=== PATIENT | female | born 1960 | race Caucasian/White ===

== ENCOUNTER 2017-11-11 12:48 | Observation (INO) ==
[2017-11-11] MEDS ORDERED: Ondansetron 4 MG/2 ML VIAL IVP ONE ×2 (13:27→15:50)
[2017-11-11] MEDS ORDERED: Ipratropium/Albuterol Neb 3 ML IH ONE (13:27)
[2017-11-11] MEDS ORDERED: Levofloxacin 500 MG/100 ML 500 MG/100 ML BAG IVPB ONE (13:27)
[2017-11-11] MEDS ORDERED: methylPREDNISolone 125 MG/2 ML VIAL IVP ONE (13:27)
--- NOTE | 2017-11-11 13:29 | Emergency Department Note ---
Disposition Clinical Impression: COPD exacerbation Disposition: Admitted As Inpatient Condition: Fair Referrals: Amy Haskins [employer] STOCK CLERK [Primary Care Provider] - Forms: ED Satisfaction Letter Time of Disposition: 14:40 (obsv yuriy obsv) SOB HPI - General Chief Complaint: ED Shortness of Breath/Dyspnea Stated Complaint: DAVID and headache Time Seen by Provider: 11/11/17 12:51 Source: patient Mode of arrival: ambulatory Limitations: no limitations Nursing Notes Reviewed: Yes Vital Signs Reviewed: Yes - History of Present Illness 57-year-old female who looks much older than her stated age who EMS was dispatched out to the house for dyspnea refused transport by EMS has been but brought in by private auto patient markedly dyspneic unable to ambulate more than 2-3 feet while on oxygen without having to stop and catch her breath patient normally on 2 L to 3 L of nasal cannula oxygen was increased to 4 L patient admits to cough congestion sputum production states not eating as well because she so short of breath Pt Subjective Complaint: shortness of breath Onset (ago): day(s) Context: other (Prior history) Severity: moderate Consistency/Duration: gradually worsening Improves with: oxygen, bronchodilators Worsens with: exertion Known history of: COPD Associated symptoms: Reports: cough, wheezing, sputum production. Denies: chest pain, pain with inspiration, fever, orthopnea, lower extremity pain, polyuria, polydipsia, parasthesias, palpitations, hemoptysis, diaphoresis, nausea/vomiting, syncope, abdominal pain, rash, sense of impending doom Treatment prior to arrival: oxygen, bronchodilator Cough present: Yes Cough Description: Involuntary, Weak, Bronchospastic Cough Frequency: Intermittent Sputum production: Yes Sputum Amount: Small Sputum Color: Cream - Related Data Home Medications Medication Instructions Recorded Confirmed Albuterol Sulfate [Albuterol 1 puff IH Q4HR PRN 10/11/15 11/11/17 Inhaler] Tiotropium [Spiriva] 18 mcg IH DAILY 10/11/15 11/11/17 Carisoprodol [Soma] 350 mg PO 1-2XD PRN 10/18/15 11/11/17 Meloxicam [Mobic] 15 mg PO DAILY PRN 10/18/15 11/11/17 Montelukast [Singulair] 10 mg PO DAILY 10/18/15 11/11/17 traZODone [TraZODone] 50 mg PO HS PRN 10/18/15 11/11/17 Budesonide Neb [Pulmicort Neb] 2 ml IH Q4H 11/29/16 11/11/17 Fluticasone Propionate [Flovent 220 mcg IH DAILY 11/29/16 11/11/17 Hfa] Lactose-Reduced Food [Boost] 237 ml PO TID 11/29/16 11/11/17 Previous Rx's Medication Instructions Recorded Albuterol Neb [Proventil Neb] 3 ml IH Q4HR #0 10/26/15 ALPRAZolam [Xanax 1 MG Tablet] 1 mg PO QID #20 10/02/16 Omeprazole 20 mg PO DAILY #30 tablet. 10/02/16 Benzonatate [Tessalon] 100 mg PO TID PRN #30 capsule 12/04/16 HYDROcodone/Acet 5/325 mg [[place] 1 tab PO Q4HR PRN #20 tablet 12/04/16 5-325 mg] Oxygen 4 l NS CONT #0 12/04/16 Guaifenesin/Dm/Pseudoephedrine 1 each PO BID #20 tablet 07/24/17 [Capmist Dm Tablet] Ondansetron HCl [Zofran] 4 mg PO TID #15 tablet 07/24/17 levoFLOXacin [Levaquin] 500 mg PO DAILY #10 tablet 07/24/17 Allergies Allergy/AdvReac Type Severity Reaction Status Date / Time ketorolac [From Toradol] Allergy Hallucinati Verified 11/11/17 12:49 ng ibuprofen AdvReac Gastrointestinal Verified 11/11/17 12:49 Upset naproxen AdvReac Nausea Verified 11/11/17 12:49 All systems ED: reviewed and negative except as stated. Review of Systems: As Per HPI Constitutional: Reports: weakness. Denies: fever, chills Eyes: Denies: eye pain, eye discharge ENT ED: Reports: congestion. Denies: ear pain, throat pain, dental pain Cardiovascular: Reports: dyspnea on exertion. Denies: chest pain, palpitations Respiratory: Reports: cough, dyspnea, wheezes, sputum production Gastrointestinal: Denies: abdominal pain, nausea, vomiting Genitourinary: Denies: urgency, dysuria, frequency Musculoskeletal: Denies: back pain, neck pain, joint swelling Integumentary: Denies: rash, abrasion Neurological: Denies: headache Psychiatric: Denies: anxiety Endocrine: Denies: fatigue Hematological/Lymphatic: Denies: easy bleeding Allergic/Immunologic: Denies: facial swelling Past Medical History - Past Medical History Attestation: Yes The following information was validated with the patient. Source: patient, old records reviewed, obtained from family, nursing notes reviewed Medical history: Reports: COPD, other Surgical history: Reports: other Psychiatric history: Reports: anxiety, depression - Social History Smoking Status: Current every day smoker Smokeless Tobacco Status: No Alcohol use: Reports: none Drug use: Reports: none Physical Exam - General Limitations: no limitations General appearance: alert, in no apparent distress, lethargic - Head Head exam: atraumatic, normocephalic, normal inspection - Eye Eye exam: Present: normal appearance, PERRL, EOMI - ENT ENT exam: normal exam, normal oropharynx, mucous membranes moist, TM's normal bilaterally, normal external ear exam - Neck Neck exam: Present: normal inspection, full ROM, trachea midline - Chest Chest inspection: Present: normal inspection, symmetric chest wall rise - Respiratory Respiratory exam: Present: respiratory distress, wheezes, accessory muscle use, prolonged expiratory phase - Cardiovascular Cardiovascular exam: Present: regular rate, normal rhythm, normal heart sounds - Abdominal Exam Abdominal exam: Present: soft, Non-Tender, normal bowel sounds. Absent: mass, pulsatile mass - Extremities Exam Extremities exam: Present: normal inspection, full ROM, normal capillary refill. Absent: tenderness, pedal edema, joint swelling, calf tenderness - Expanded Lower Extremity Exam Neurovascular/Tendon exam: Present: normal capillary refill, normal fine/light touch Gait: observed and normal - Back Exam Back exam: Present: normal inspection, full ROM. Absent: muscle spasm - Neurological Exam Neurological exam: Present: alert, oriented X3, CN II-XII intact, other (Unable to ambulate more than 2-3 feet because of profound dyspnea) - Psychiatric Psychiatric exam: Present: normal affect, normal mood - Skin Skin exam: Present: warm, dry, intact, normal color Course Course Narrative: She was seen and examined given DuoNeb 2 Levaquin and Solu-Medrol patient is starting to show some improvement oblation is complaining of a headache patient will be given Nubain for the headache patient will be admitted to service of Dr. Griffith for further management and treatment Vital Signs Temperature 98.1 F 11/11/17 12:51 Pulse Rate 114 11/11/17 12:51 Respiratory Rate 26 11/11/17 12:51 Blood Pressure 101/69 11/11/17 12:51 O2 Sat by Pulse Oximetry 86 11/11/17 12:51 Temperature 98.1 F 11/11/17 12:51 Pulse Rate 105 11/11/17 14:02 Respiratory Rate 21 11/11/17 14:19 Blood Pressure 92/66 11/11/17 14:02 O2 Sat by Pulse Oximetry 94 11/11/17 14:19 Oxygen Delivery Oxygen Delivery Nasal Cannula Shortness of Breath/Dyspnea - Differential Diagnosis Likely: acute exacerbation of chronic obstructive airways disease - Medical Records Medical records reviewed: Yes I reviewed the patient's medical records. - Lab Data Lab results reviewed: Yes I reviewed the patient's lab results. Result diagrams: 11/11/17 13:25 11/11/17 13:25 Lab Results 11/11/17 11/11/17 11/11/17 Range/Units 13:25 13:25 13:25 WBC 12.9 H (4.3-11.1) K/mcL RBC 4.59 (3.82-4.97) M/mcL Hgb 14.6 (11.5-15.4) g/dL Hct 43.2 (35.3-44.9) % MCV 94.1 (83.0-100.0) fL MCH 31.8 (28.0-33.3) pg MCHC 33.8 (31.6-35.5) g/dL RDW 15.2 H (11.5-14.5) % Plt Count 295 (140-400) K/mcL MPV 9.8 (9.4-12.4) fL Immature Gran % 0.3 (0-4) % Seg Neutrophils % 86.6 % Lymphocytes % 4.3 % Monocytes % 8.1 % Eosinophils % 0.2 % Basophils % 0.5 % Neutrophils # 11.2 H (1.6-8.9) K/mcL Lymphocytes # 0.6 (0.6-4.6) K/mcL Monocytes # 1.0 (0.0-1.3) K/mcL Eosinophils # 0.0 (0.0-0.6) K/mcL Basophils # 0.1 (0.0-0.2) K/mcL PT 12.0 (9.4-12.1) Seconds INR 1.1 APTT 33.9 (26.0-36.0) Seconds Sample Site ABG pH (7.32-7.45) pH Units ABG pCO2 (35-45) mmHg ABG pO2 (85-104) mmHg ABG HCO3 (21-27) mEq/L ABG Total CO2 (20-26) mEq/L ABG O2 Saturation (95-98) % ABG Base Excess (-2 to 3) mEq/L Terrence Test Blood Gas Modality Sodium (136-145) mEq/L Potassium (3.5-5.1) mEq/L Chloride (98-107) mEq/L Carbon Dioxide (23-29) mEq/L BUN (6-20) mg/dL Creatinine (0.60-1.20) mg/dL Est GFR ( Amer) (> 60) Est GFR (Non-Af Amer) (> 60) BUN/Creatinine Ratio (6-26) Glucose (70-105) mg/dL Calculated Osmolality (280-300) Lactic Acid 1.0 (0.5-2.2) mmol/L Calcium (8.6-10.3) mg/dL Total Bilirubin (0.3-1.0) mg/dL AST (13-39) Units/L ALT (7-52) Units/L Alkaline Phosphatase (34-104) Units/L Troponin I (< 0.04) ng/mL Serum Total Protein (6.4-8.9) g/dL Albumin (3.5-5.7) g/dL Globulin (2.4-3.5) g/dL Albumin/Globulin Ratio (1.1-2.2) 11/11/17 11/11/17 Range/Units 13:25 14:13 WBC (4.3-11.1) K/mcL RBC (3.82-4.97) M/mcL Hgb (11.5-15.4) g/dL Hct (35.3-44.9) % MCV (83.0-100.0) fL MCH (28.0-33.3) pg MCHC (31.6-35.5) g/dL RDW (11.5-14.5) % Plt Count (140-400) K/mcL MPV (9.4-12.4) fL Immature Gran % (0-4) % Seg Neutrophils % % Lymphocytes % % Monocytes % % Eosinophils % % Basophils % % Neutrophils # (1.6-8.9) K/mcL Lymphocytes # (0.6-4.6) K/mcL Monocytes # (0.0-1.3) K/mcL Eosinophils # (0.0-0.6) K/mcL Basophils # (0.0-0.2) K/mcL PT (9.4-12.1) Seconds INR APTT (26.0-36.0) Seconds Sample Site L Brach ABG pH 7.37 (7.32-7.45) pH Units ABG pCO2 51 H (35-45) mmHg ABG pO2 69 L (85-104) mmHg ABG HCO3 29 H (21-27) mEq/L ABG Total CO2 31 H (20-26) mEq/L ABG O2 Saturation 93 L (95-98) % ABG Base Excess 3 (-2 to 3) mEq/L Terrence Test N/A Blood Gas Modality nc Sodium 136 (136-145) mEq/L Potassium 4.1 (3.5-5.1) mEq/L Chloride 101 (98-107) mEq/L Carbon Dioxide 30 H (23-29) mEq/L BUN 6 (6-20) mg/dL Creatinine 0.67 (0.60-1.20) mg/dL Est GFR ( Amer) > 60 (> 60) Est GFR (Non-Af Amer) > 60 (> 60) BUN/Creatinine Ratio 9 (6-26) Glucose 106 H (70-105) mg/dL Calculated Osmolality 280 (280-300) Lactic Acid (0.5-2.2) mmol/L Calcium 9.9 (8.6-10.3) mg/dL Total Bilirubin 0.3 (0.3-1.0) mg/dL AST 16 (13-39) Units/L ALT 10 (7-52) Units/L Alkaline Phosphatase 96 (34-104) Units/L Troponin I < 0.03 (< 0.04) ng/mL Serum Total Protein 7.1 (6.4-8.9) g/dL Albumin 4.1 (3.5-5.7) g/dL Globulin 3.0 (2.4-3.5) g/dL Albumin/Globulin Ratio 1.4 (1.1-2.2) - Radiology Data Radiology results reviewed: Yes I reviewed the patient's radiology results. ITS Impressions Chest X-Ray 11/11/17 13:27 IMPRESSION: No acute process. COPD. D/ / 11/11/2017 14:26:50 Manjit Duvall MD / [facility] Interpreting Provider: Manjit Duvall MD - EKG Data EKG attestation: Yes I reviewed and interpreted this EKG. EKG results narrative: Sinus tach rate 108 UT 144 QRS 85 QT 310 axis to 64 Critical Care Time Critical Care Time: No
[2017-11-11] MEDS ORDERED: 0.9 % Sodium Chloride 1,000 ML IVC SCH (13:30)
[2017-11-11 13:39] LABS: Basophils # 0.1 K/mcL (0.0-0.2); Basophils % 0.5 %; Eosinophils % 0.2 %; Hematocrit 43.2 % (35.3-44.9); Hemoglobin 14.6 g/dL (11.5-15.4); Immature Granulocytes % 0.3 % (0-4); Lymphocytes # 0.6 K/mcL (0.6-4.6); Lymphocytes % 4.3 %; Mean Corpuscular HGB Conc 33.8 g/dL (31.6-35.5); Mean Corpuscular Hemoglobin 31.8 pg (28.0-33.3); Mean Corpuscular Volume 94.1 fL (83.0-100.0); Mean Platelet Volume 9.8 fL (9.4-12.4); Monocytes % 8.1 %; Neutrophils # 11.2 K/mcL (1.6-8.9); Platelet Count 295 K/mcL (140-400); Red Blood Count 4.59 M/mcL (3.82-4.97); Red Cell Distribution Width 15.2 % (11.5-14.5); Segmented Neutrophils % 86.6 %
[2017-11-11 13:48] LABS: INR 1.1
[2017-11-11 13:50] LABS: Activated Partial Thrombo Time 33.9 Seconds (26.0-36.0)
[2017-11-11 13:54] LABS: Alanine Aminotransferase 10 Units/L (7-52); Albumin 4.1 g/dL (3.5-5.7); Albumin/Globulin Ratio 1.4 (1.1-2.2); Alkaline Phosphatase 96 Units/L (34-104); Aspartate Amino Transferase 16 Units/L (13-39); BUN/Creatinine Ratio 9 (6-26); Bilirubin,Total 0.3 mg/dL (0.3-1.0); Blood Urea Nitrogen 6 mg/dL (6-20); Calcium 9.9 mg/dL (8.6-10.3); Carbon Dioxide 30 mEq/L (23-29); Chloride 101 mEq/L (98-107); Glucose 106 mg/dL (70-105); Osmolality,Calculated 280 (280-300); Potassium 4.1 mEq/L (3.5-5.1); Sodium 136 mEq/L (136-145); Total Protein 7.1 g/dL (6.4-8.9); eGFR For African Americans > 60 (> 60); eGFR For Non-African Americans > 60 (> 60)
[2017-11-11 14:00] LABS: Troponin I < 0.03 ng/mL (< 0.04)
[2017-11-11 14:17] LABS: ABG Base Excess 3 mEq/L (-2 to 3); ABG HCO3 29 mEq/L (21-27); ABG Oxygen Saturation 93 % (95-98); ABG PCO2 51 mmHg (35-45); ABG PH 7.37 pH Units (7.32-7.45); ABG PO2 69 mmHg (85-104); ABG TCO2 31 mEq/L (20-26); Blood Gas Modality nc
[2017-11-11] MEDS ORDERED: NON-FORMULARY MEDICATION 1 EACH EACH (Lactose-Reduced Food [Boost] 237 ML) PO SCH (15:50)
[2017-11-11] MEDS ORDERED: *HR* Nalbuphine 20 MG/ML AMPUL IVP STA (15:50)
[2017-11-11] MEDS ORDERED: Benzonatate 100 MG CAPSULE PO PRN (15:50)
[2017-11-11] MEDS ORDERED: Carisoprodol 350 MG TABLET PO PRN (15:50)
[2017-11-11] MEDS ORDERED: Acetaminophen 325 MG TABLET PO PRN (16:57)
[2017-11-11] MEDS: Ondansetron ODT 4 MG TAB.RAPDIS PO SCH ×2 (16:57→20:21)
[2017-11-11] MEDS: ALPRAZolam 1 MG TABLET PO SCH ×2 (17:04→20:21)
[2017-11-11] MEDS: 0.9 % Sodium Chloride 1,000 ML IVC SCH ×2 (17:06→23:05)
[2017-11-11] MEDS: Ipratropium/Albuterol Neb 3 ML IH SCH ×2 (18:54→23:16)
[2017-11-11] MEDS: MethylPREDNISolone 40 MG/ML VIAL IVP SCH (19:19)
[2017-11-11] MEDS: GUAIFENESIN PO SCH (20:21)
[2017-11-11] MEDS: PSEUDOEPHEDRINE PO SCH (20:21)
[2017-11-11] MEDS: DEXTROMETHORPHAN PO SCH (20:21)
[2017-11-11] MEDS ORDERED: traZODone 50 MG TABLET PO PRN (21:00)
[2017-11-12] MEDS: MethylPREDNISolone 40 MG/ML VIAL IVP SCH ×2 (00:20→06:02)
[2017-11-12] MEDS: Ipratropium/Albuterol Neb 3 ML IH SCH ×2 (05:40→10:35)
[2017-11-12] MEDS: 0.9 % Sodium Chloride 1,000 ML IVC SCH (06:03)
[2017-11-12] MEDS: ALPRAZolam 1 MG TABLET PO SCH ×4 (07:32→20:25)
[2017-11-12] MEDS: Ondansetron ODT 4 MG TAB.RAPDIS PO SCH ×3 (07:32→20:25)
[2017-11-12] MEDS: DEXTROMETHORPHAN PO SCH ×2 (07:33→22:02)
[2017-11-12] MEDS: GUAIFENESIN PO SCH ×2 (07:33→22:02)
[2017-11-12] MEDS: PSEUDOEPHEDRINE PO SCH ×2 (07:33→22:02)
[2017-11-12] MEDS: Levofloxacin 500 MG/100 ML 500 MG/100 ML BAG IVPB SCH (07:34)
[2017-11-12] MEDS ORDERED: Tiotropium 18 MCG inhalation IH SCH (09:00)
--- NOTE | 2017-11-12 10:55 | Internal Med History&Physical ---
Date of Encounter: 11/12/17 Time of Encounter: 10:10 Assessment and Plan (1) COPD exacerbation Current visit: Yes Status: Acute She has been started on Levaquin with Solu-Medrol. Will add lactobacillus. (2) Anxiety and depression Current visit: No Status: Chronic Continue Xanax (3) Severe protein-calorie malnutrition Current visit: No Status: Chronic Chronic. Dietitian can add supplement as needed. Internal Medicine - H&P: HPI Chief complaint: Dyspnea Admitted From: Emergency Dept Plans for Post Hospital Care: Home History of present illness: Ms. Burgos is a 57 year old female who came to emergency room stating she had worsening dyspnea onset the morning of November 10. She reports a cough productive of brown sputum and no hemoptysis. She was evaluated in emergency room and felt to have exacerbation of COPD and was admitted to [facility] floor for ongoing care needs. Her respiratory history is significant for having smoked since age 12 up to 3 packs per day. She states she presently smokes approximately 7 cigarettes daily. She has been told from pulmonary function tests that she has asthma, COPD and emphysema. She was also told she would benefit from a lung transplant but was not eligible because of smoking. She wears oxygen at home 19/02 except taking it off to smoke. She follows with a pediatric acute care unit nurse at [facility] every 4 months. Past Med Surg Social Fam HX - Past Medical History Medical history: COPD, other Psychiatric history: anxiety, depression - Past Surgical History Surgical History: other - Social History Smoking Status: Current every day smoker Packs per day: 0.5 Smokeless Tobacco Status: No Alcohol use: rarely Drug use: none - Family History Mother Living Status: Hx Family Respiratory Disorders: Yes Father Living Status: Hx Family Cardiac Disorders: Yes (heart valve surgery) Hx Family Respiratory Disorders: Yes Internal Medicine - H&P: Meds Albuterol Sulfate [Albuterol Inhaler] 1 puff IH Q4HR PRN 10/11/15 [History] Tiotropium [Spiriva] 18 mcg IH DAILY 10/11/15 [History] Carisoprodol [Soma] 350 mg PO 1-2XD PRN 10/18/15 [History] Meloxicam [Mobic] 15 mg PO DAILY PRN 10/18/15 [History] Montelukast [Singulair] 10 mg PO DAILY 10/18/15 [History] traZODone [TraZODone] 50 mg PO HS PRN 10/18/15 [History] Albuterol Neb [Proventil Neb] 3 ml IH Q4HR #0 10/26/15 [Rx] ALPRAZolam [Xanax 1 MG Tablet] 1 mg PO QID #20 10/02/16 [Rx] Omeprazole 20 mg PO DAILY #30 tablet. 10/02/16 [Rx] Budesonide Neb [Pulmicort Neb] 2 ml IH Q4H 11/29/16 [History] Fluticasone Propionate [Flovent Hfa] 220 mcg IH DAILY 11/29/16 [History] Lactose-Reduced Food [Boost] 237 ml PO TID 11/29/16 [History] Benzonatate [Tessalon] 100 mg PO TID PRN #30 capsule 12/04/16 [Rx] HYDROcodone/Acet 5/325 mg [[place] 5-325 mg] 1 tab PO Q4HR PRN #20 tablet [Rx] Oxygen 4 l NS CONT #0 12/04/16 [Rx] Guaifenesin/Dm/Pseudoephedrine [Capmist Dm Tablet] 1 each PO BID #20 tablet [Rx] Ondansetron HCl [Zofran] 4 mg PO TID #15 tablet 07/24/17 [Rx] levoFLOXacin [Levaquin] 500 mg PO DAILY #10 tablet 07/24/17 [Rx] 3 Allergy/AdvReac Type Severity Reaction Status Date / Time ketorolac [From Toradol] Allergy Hallucinati Verified 11/11/17 12:49 ng ibuprofen AdvReac Gastrointestinal Verified 11/11/17 12:49 Upset naproxen AdvReac Nausea Verified 11/11/17 12:49 All Systems PM: A 10-system review of systems was performed and is negative for pertinent findings except as documented above in the HPI. Review of systems: Review of systems from the September 2015 [facility] hospitalization were reviewed and revised as below. Gen.: Her weight has been stable at approximate 42 kg since the September 2015 [facility] hospitalization. Cardiovascular: She has no known hypertension [place] heart failure angina DVT or pulmonary embolus. She does get dyspneic on exertion. Respiratory: As per history of present illness GI: She has GERD but denies disorders of her liver gallbladder or exocrine pancreas. : No history of hematuria dysuria or kidney stones Neurologic: No history of large distribution strokes or seizures. Endocrine: She has no known diabetes thyroid disease or hyperlipidemia Hematology/oncology: She had cervical cancel several years ago which was cauterized and apparently cured. She has had breast lumpectomy with benign findings. She was told in 2006 she possibly had lung cancer but CT scans done since then showed no definitive cancer. She has not had documented internal malignancies or anemia Psychiatric: She has anxiety and depression. [place] skeletal: She has DJD but no known gout or osteoporosis. - Constitutional Vitals: Temp Pulse Resp BP Pulse Ox 97.6 F 74 16 96/64 95 11/12/17 05:58 11/12/17 05:58 11/12/17 05:58 11/12/17 05:58 11/12/17 05:58 Exam: Gen.: She is a well-developed lean female who appears slightly dyspneic at rest HEENT: Head is atraumatic and normocephalic. Eyes: EOMI. There is no scleral icterus. Mouth: Mucosa is moist. Neck: Supple and nontender. There is no thyromegaly or adenopathy noted. Heart: Regular without murmurs gallops or ectopics Lungs: She has significantly diminished breath sounds bilaterally. No wheezes or crackles are heard. There is no egophony. Abdomen: Soft and nontender. No masses or guarding are noted. Extremities: There is no cyanosis edema or clubbing noted. Dorsalis pedis and posttibial pulses are trace to 1+ palpable bilaterally. Neurologic: Mental status: She is talkative and a good historian. Cranial nerves: Smile is symmetric. Forehead wrinkles bilaterally. Tongue protrudes midline. EOMI. Motor: There is no pronator drift. Cerebellar: Finger to nose is intact bilaterally. Skin: Warm and dry Internal Med - H&P Results - Labs CBC & Chem 7: 11/11/17 13:25 11/11/17 13:25 - VTE Reasons for not Prescribing Prophylaxis: Refused by patient
[2017-11-12] MEDS: *HR* HYDROcodone/Acet 5/325 mg TABLET PO PRN ×2 (12:11→18:33)
[2017-11-12] MEDS: Albuterol 2.5 MG/3 ML NEBULIZER IH PRN ×2 (16:06→23:38)
[2017-11-12] MEDS: predniSONE 20 MG TABLET PO SCH ×2 (17:33→17:39)
[2017-11-13 06:51] LABS: Basophils % 0.1 %; Hemoglobin 11.8 g/dL (11.5-15.4); Immature Granulocytes % 0.4 % (0-4); Lymphocytes # 1.6 K/mcL (0.6-4.6); Mean Corpuscular HGB Conc 31.9 g/dL (31.6-35.5); Mean Corpuscular Hemoglobin 31.4 pg (28.0-33.3); Mean Corpuscular Volume 98.4 fL (83.0-100.0); Mean Platelet Volume 9.6 fL (9.4-12.4); Monocytes # 1.3 K/mcL (0.0-1.3); Monocytes % 8.8 %; Neutrophils # 11.4 K/mcL (1.6-8.9); Platelet Count 236 K/mcL (140-400); Red Blood Count 3.76 M/mcL (3.82-4.97); Red Cell Distribution Width 15.4 % (11.5-14.5); Segmented Neutrophils % 79.7 %
[2017-11-13] MEDS: *HR* HYDROcodone/Acet 5/325 mg TABLET PO PRN (06:52)
[2017-11-13] MEDS: Albuterol 2.5 MG/3 ML NEBULIZER IH PRN ×3 (06:55→13:26)
[2017-11-13] MEDS ORDERED: Tiotropium 18 MCG inhalation IH SCH ×2 (07:00→10:00)
[2017-11-13] MEDS: predniSONE 20 MG TABLET PO SCH (08:19)
[2017-11-13] MEDS: Ondansetron ODT 4 MG TAB.RAPDIS PO SCH (08:19)
[2017-11-13] MEDS: Levofloxacin 500 MG/100 ML 500 MG/100 ML BAG IVPB SCH (08:19)
[2017-11-13] MEDS: ALPRAZolam 1 MG TABLET PO SCH (08:19)
[2017-11-13] MEDS: PSEUDOEPHEDRINE PO SCH (08:22)
[2017-11-13] MEDS: DEXTROMETHORPHAN PO SCH (08:22)
[2017-11-13] MEDS: GUAIFENESIN PO SCH (08:22)
--- NOTE | 2017-11-13 10:20 | Discharge Summary ---
Date of Encounter: 11/13/17 Time of Encounter: 10:10 - Discharge Diagnosis (1) COPD exacerbation Priority: Primary Status: Acute (2) Anxiety and depression Priority: Secondary Status: Chronic (3) Severe protein-calorie malnutrition Priority: Secondary Status: Chronic Hospital course: Ms. Burgos is a 57 year old female who came to emergency room stating she had worsening dyspnea onset the morning of November 10. She reports a cough productive of brown sputum and no hemoptysis. She was evaluated in emergency room and felt to have exacerbation of COPD and was admitted to [facility] for ongoing care needs. Initial orders were written by the emergency room physician. I saw her on November 12 and performed a history and physical. She was started on IV Levaquin with Solu-Medrol. I added lactobacillus. She had clinical improvement and remained afebrile during her hospital stay. When I saw her on November 13 she felt significantly better and felt stable for discharge home which I felt was reasonable. She will continue with antibiotic and probiotic with prednisone for 3 additional days at discharge. I strongly encouraged her to become a nonsmoker and to wear her oxygen 24/7 at home. She will follow with her PCP within 1 week. - Time Spent with Patient Total time spent providing and/or coordinating discharge services: - Discharge Medications Prescriptions: Lactobacillus [Culturelle] 1 each PO BID #6 cap.sprink levoFLOXacin [Levaquin] 500 mg PO DAILY #3 tablet predniSONE [PredniSONE] 10 mg PO BIDWM #6 tablet Home Medications: Albuterol Sulfate [Albuterol Inhaler] 1 puff IH Q4HR PRN 10/11/15 [History] Tiotropium [Spiriva] 18 mcg IH DAILY 10/11/15 [History] Carisoprodol [Soma] 350 mg PO 1-2XD PRN 10/18/15 [History] Meloxicam [Mobic] 15 mg PO DAILY PRN 10/18/15 [History] Montelukast [Singulair] 10 mg PO DAILY 10/18/15 [History] traZODone [TraZODone] 50 mg PO HS PRN 10/18/15 [History] Albuterol Neb [Proventil Neb] 3 ml IH Q4HR #0 10/26/15 [Rx] ALPRAZolam [Xanax 1 MG Tablet] 1 mg PO QID #20 10/02/16 [Rx] Omeprazole 20 mg PO DAILY #30 tablet. 10/02/16 [Rx] Budesonide Neb [Pulmicort Neb] 2 ml IH Q4H 11/29/16 [History] Fluticasone Propionate [Flovent Hfa] 220 mcg IH DAILY 11/29/16 [History] Lactose-Reduced Food [Boost] 237 ml PO TID 11/29/16 [History] Benzonatate [Tessalon] 100 mg PO TID PRN #30 capsule 12/04/16 [Rx] HYDROcodone/Acet 5/325 mg [[place] 5-325 mg] 1 tab PO Q4HR PRN #20 tablet [Rx] Oxygen 4 l NS CONT #0 12/04/16 [Rx] Guaifenesin/Dm/Pseudoephedrine [Capmist Dm Tablet] 1 each PO BID #20 tablet [Rx] Ondansetron HCl [Zofran] 4 mg PO TID #15 tablet 07/24/17 [Rx] levoFLOXacin [Levaquin] 500 mg PO DAILY #10 tablet 07/24/17 [Rx] Lactobacillus [Culturelle] 1 each PO BID #6 cap.sprink 11/13/17 [Rx] levoFLOXacin [Levaquin] 500 mg PO DAILY #3 tablet 11/13/17 [Rx] predniSONE [PredniSONE] 10 mg PO BIDWM #6 tablet 11/13/17 [Rx] Allergies/Adverse Reactions: 3 Allergy/AdvReac Type Severity Reaction Status Date / Time ketorolac [From Toradol] Allergy Hallucinati Verified 11/11/17 12:49 ng ibuprofen AdvReac Gastrointestinal Verified 11/11/17 12:49 Upset naproxen AdvReac Nausea Verified 11/11/17 12:49 Date of admission: 11/11/17 15:42 Primary care physician: Gallito Rod Consults: 11/11/17 16:13 Consult to Nutrition [CONS] Routine Comment: Consulting Provider: NUTRITION Reason for Dietary Consult: MST Score Consult to Manager Fashion [CONS] Routine Reason for SW Consult: Discharge planning - Constitutional Vitals: Temp Pulse Resp BP Pulse Ox 98.8 F 83 18 103/68 89 11/13/17 07:09 11/13/17 07:09 11/13/17 09:01 11/13/17 07:09 11/13/17 09:01 - Patient Status Disposition: Home, Self-Care Condition: Fair Overall status at discharge: patient is progressing back to baseline - Discharge Instructions Follow Up With: Gallito Rod DO [Non-Partnered Physician] - 1 week - Diet and Activity Activity: wear oxygen at all times Diet: advance to your usual diet - VTE Reasons for not Prescribing Prophylaxis: Refused by patient
[2017-11-13 11:12] VITALS: BP 101/63
--- NOTE | 2017-11-16 12:01 | Electrocardiograph Report ---
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
== END 2017-11-13 16:30 | disposition home or self-care (01) ==
LOC: INPPIK 12:48 → EMEROOPIK 12:48 → INPPIK 15:52
PROVIDERS: ADMIT Internal Medicine; ATTEND Internal Medicine